=== PATIENT | female | born 1980 | race Caucasian/White ===

== ENCOUNTER 2020-08-13 22:33 | Emergency (ER) | payer SELFPAY ==
[~2020-08-13] VITALS: Ht 162.6 cm; Wt 97.5 kg
[2020-08-13 22:46] VITALS: Ht 162.6 cm; Wt 97.5 kg
[2020-08-13 23:34] LABS: microscopic required? NO
[2020-08-13 23:38] LABS: UA SPECIFIC GRAVITY <=1.005 (1.005-1.035); urine erythrocyte NEGATIVE (NEGATIVE)
[2020-08-13 23:40] LABS: BASOPHIL % 1.7 % (0.2-1.3); PLATELET COUNT 296 x10^3mcL (179-408)
[2020-08-13 23:55] LABS: CALCIUM 8.8 mg/dL (8.5-10.1); CARBON DIOXIDE 18.9 mmol/L (21-32); CHLORIDE SERUM 105 mmol/L (98-107); CREATININE SERUM 0.6 mg/dL (0.6-1.0); GFR1 > 60 mL/min; GLUCOSE SERUM 110 mg/dL (74-106); POTASSIUM SERUM 3.8 mmol/L (3.5-5.1); SODIUM SERUM 140 mmol/L (136-145)
[2020-08-13 23:57] LABS: AMPHETAMINE QUAL UR NONE DETECTED (See below)
[2020-08-14] LABS: ALKALINE PHOSPHATASE 172 U/L (46-116); ALT/SGPT 92 U/L (14-59); AST/SGOT 138 U/L (15-37); BILIRUBIN TOTAL 0.2 mg/dL (0.20-1.00); TOTAL PROTEIN, SERUM 7.1 g/dL (6.4-8.2)
[2020-08-14 00:01] LABS: ALBUMIN 2.8 g/dL (3.4-5.0)
[2020-08-14 02:06] VITALS: BP 119/69
== END 2020-08-14 02:06 | disposition home or self-care (01) ==
LOC: ED 22:33
PROVIDERS: Emergency Medicine
DX: R53.1 Weakness (principal); F10.129 Alcohol abuse with intoxication, unspecified; Z88.5 Allergy status to narcotic agent; Y90.8 Blood alcohol level of 240 mg/100 ml or more
CPT/HCPCS: G0480; J7030